=== PATIENT | male | born 2000 | race Caucasian/White ===

== ENCOUNTER 2025-03-23 07:22 | Emergency (ER) | payer MEDICAID ==
[~2025-03-23] VITALS: Ht 172.7 cm; Wt 72.0 kg
[2025-03-23 07:25] VITALS: O2SAT 98
[2025-03-23 08:00] LABS: BASOPHILS % 0.5 % (0.0-2.0); EOSINOPHILS % 0.7 % (0.0-5.0); HEMATOCRIT. 44.5 % (42.0-52.0); HEMOGLOBIN. 15.8 g/dL (14.0-18.0); LYMPHOCYTES % 9.9 % (20.0-50.0); MEAN PLATELET VOLUME 8.3 fl (7.4-10.4); MONOCYTES % 8.2 % (2.0-8.0); NEUTROPHILS % 80.7 % (40.0-76.0); PLATELET 257 x1000/uL (130-400); RED BLOOD CELL COUNT 5.03 mill/uL (4.7-6.1); RED CELL DISTRIBUTION WIDTH 12.8 % (11.6-14.6)
[2025-03-23 08:14] LABS: CREATININE 1.0 mg/dL (0.6-1.3); UREA NITROGEN BLOOD 6 mg/dL (9-23)
[2025-03-23 08:39] LABS: *AMPHETAMINES SCREEN URINE NEGATIVE (NEGATIVE); *BARBITURATES SCREEN URINE NEGATIVE (NEGATIVE); *BENZODIAZEPINES SCREEN URINE NEGATIVE (NEGATIVE); *COCAINE SCREEN URINE NEGATIVE (NEGATIVE); CANNABINOID URINE SCREEN NEGATIVE (NEGATIVE); ECSTASY MDMA SCREEN URINE NEGATIVE (NEGATIVE); METHADONE URINE SCREEN NEGATIVE (NEGATIVE); OPIATES URINE SCREEN NEGATIVE (NEGATIVE); PHENCYCLIDINE URINE SCREEN NEGATIVE (NEGATIVE)
[2025-03-23 15:42] VITALS: BP 118/82; PULSE 99; RESP 15; TEMP 36.7; O2SAT 99
== END 2025-03-23 15:50 | disposition short-term general hospital (02) ==
LOC: ER 07:38
DX: F23 Brief psychotic disorder (principal); Z00.8 Encounter for other general examination; Z59.00 Homelessness unspecified; Z76.0 Encounter for issue of repeat prescription; Z79.899 Other long term (current) drug therapy
CPT/HCPCS: 36415; 80048; 80305; 80320; 85025; 87426; 99285; G0480